=== PATIENT | female | born 1975 | race Hispanic/Latino ===

== ENCOUNTER 2017-02-06 17:52 | Emergency (ER) | payer SELFPAY ==
[2017-02-06] MEDS ORDERED: HYDROcodone/Acetaminophen 10/325 mg Tablet ONE (19:10)
== END 2017-02-06 19:15 | disposition home or self-care (01) ==
LOC: ERS 17:52
DX: K02.9 Dental caries, unspecified (principal); F32.9 Major depressive disorder, single episode, unspecified; F17.210 Nicotine dependence, cigarettes, uncomplicated
CPT/HCPCS: 99282

== ENCOUNTER 2017-05-04 05:57 | Emergency (ER) | payer SELFPAY ==
[2017-05-04 06:46] LABS: Bilirubin Negative (Negative); Blood, Urine Small (Negative); Clarity TURBID (Clear); Glucose, Urine (Dipstick) Negative (Negative); Leukocyte Large (Negative); Nitrite Positive (Negative); Protein, Urine (Dipstick) Trace mg/dL (Neg-Trace); Specific Gravity, Urine 1.022 (1.002-1.036)
[2017-05-04 06:48] LABS: Bacteria/HPF 4+ HPF (None Seen); Hyaline Casts/LPF 7-10 HYALINE CAST LPF (0-3 Hyaline); Pathc Cast-AUWi Flag 2.46 (0-2.49); RBC/HPF 21-50 HPF (0-3)
[2017-05-04 07:07] LABS: Pregnancy Test - Urine (BHCG) Negative (Negative); Pregu Control Background? CLEAR/WHITE (CLR/WHITE); Pregu Control Bar Appear? YES (CONTROL BAR); Specific Gravity 1.022 (1.002-1.036)
[2017-05-04] MEDS ORDERED: Lidocaine 1% PF 5 ML VIAL ONE (07:45)
[2017-05-04] MEDS ORDERED: cefTRIAXone\\ROCEPHIN 1 GM VIAL IM ONE (07:45)
[2017-05-05 22:13] LABS: Chlamydia by PCR Not Detected (NotDetected); GC by PCR Not Detected (NotDetected)
== END 2017-05-04 08:13 | disposition home or self-care (01) ==
LOC: ERS 05:57
DX: N30.00 Acute cystitis without hematuria (principal); F32.9 Major depressive disorder, single episode, unspecified; F17.210 Nicotine dependence, cigarettes, uncomplicated
CPT/HCPCS: 81003; 81015; 81025; 87491; 87591; 96372; J0696; J2001

== ENCOUNTER 2017-08-02 23:17 | Emergency (ER) | payer SELFPAY ==
[2017-08-03] MEDS ORDERED: Ketorolac Tromethamine 30 MG/ML VIAL ONE (01:04)
[2017-08-03] MEDS ORDERED: Acetaminophen 500 MG TAB ONE (01:04)
--- NOTE | 2017-08-03 07:44 | RAD ---
CHEST 2 VIEWS: HISTORY: Chest pain. COMPARISON: None. FINDINGS: Well defined small nodule in the right lung apex, likely a granuloma. Prominent right nipple shadow. No focal airspace consolidation, pneumothorax, or effusion. Mild spondylosis lower thoracic spine. IMPRESSION: No acute intrathoracic abnormality. No displaced rib fracture. POS: [facility]
== END 2017-08-03 01:58 | disposition home or self-care (01) ==
LOC: ERS 23:17
DX: S22.32XA Fracture of one rib, left side, initial encounter for closed fracture (principal); F32.9 Major depressive disorder, single episode, unspecified; F17.210 Nicotine dependence, cigarettes, uncomplicated; Y04.0XXA Assault by unarmed brawl or fight, initial encounter
CPT/HCPCS: 71046; 96372; J1885

== ENCOUNTER 2019-10-29 20:59 | Emergency (ER) | payer SELFPAY, OTHER ==
--- NOTE | 2019-10-30 08:29 | RAD ---
PORTABLE CHEST: HISTORY: Shortness of breath. FINDINGS: Heart size and mediastinum within normal limits. The lungs are clear of infiltrates. No significant bony findings. IMPRESSION: No active intrathoracic disease. POS: [facility]
[2019-10-30 14:50] LABS: SARS-CoV-2 MS2 Positive; SARS-CoV-2 N Gene Negative; SARS-CoV-2 S Gene Negative; SARS-CoV-2 orf1ab Negative
== END 2019-10-29 21:56 | disposition home or self-care (01) ==
LOC: ERS 20:59
DX: R50.9 Fever, unspecified (principal); M79.10 Myalgia, unspecified site; Z20.828 Contact with and (suspected) exposure to other viral communicable diseases; E03.9 Hypothyroidism, unspecified; F17.210 Nicotine dependence, cigarettes, uncomplicated; Z79.899 Other long term (current) drug therapy
CPT/HCPCS: 71045; 87635; U0003

== ENCOUNTER 2022-01-07 03:06 | Emergency (ER) | payer SELFPAY | END 2022-01-07 04:29 | disposition left against medical advice (07) | LOC: ERS 03:06 | DX: Z53.21 Procedure and treatment not carried out due to patient leaving prior to being seen by health care provider (principal) ==

== ENCOUNTER 2025-05-05 17:40 | Emergency (ER) | payer SELFPAY ==
[2025-05-05] MEDS ORDERED: Ketorolac Tromethamine 30 MG (1 mL) VIAL ONE (18:42)
[2025-05-05] MEDS ORDERED: cefTRIAXone (ROCEPHIN) 500 MG VIAL ONE (18:42)
[2025-05-05] MEDS ORDERED: Mag-Al 1200 mg/1200 mg/30 ML UDCUP ONE (18:43)
[2025-05-05] MEDS ORDERED: Lidocaine Viscous Sol 2% 15 ml UD Cup ONE (18:43)
[2025-05-05 19:11] LABS: #Basophils 0.04 10x3/uL (0.0-0.2); #Eosinophils 0.40 10x3/uL (0.0-0.7); #Monocytes 0.45 10x3/uL (0.11-0.59); #Neutrophils 4.98 10x3/uL (1.40-6.50); %Basophils 0.6 % (0.0-1.0); %Eosinophils 5.6 % (0.0-10.0); %Lymphocytes 17.7 % (21.0-51.0); %Monocytes 6.3 % (0.0-10.0); %Neutrophils 69.4 % (42.0-75.0); Hematocrit 38.0 % (36.0-47.0); Hemoglobin 12.5 g/dL (12.0-16.0); Mean Corpuscular Hemoglobin 29.5 pg (27.0-31.0); Mean Corpuscular Volume 89.6 fL (78.0-98.0); Platelet Count 271 10x3/uL (130-400); Red Blood Cell (RBC) Count 4.24 mill/uL (4.20-5.40); White Blood Cell (WBC) Count 7.17 10x3/uL (4.8-10.8)
[2025-05-05 19:20] LABS: BHCG - Serum Negative (NEGATIVE); Pregs Control Background? CLEAR/WHITE (CLR/WHITE); Pregs Control Bar Appear? YES (CONTROL BAR)
[2025-05-05 19:25] LABS: ALT (SGPT) 21 U/L (Less than 34); AST (SGOT) 29 U/L (11-34); Albumin 3.7 g/dL (3.1-4.5); Alkaline Phosphatase 84 U/L (40-110); Anion Gap 11 mmol/L (10-20); BUN (Urea Nitrogen) 15 mg/dL (7.0-18.7); Bilirubin, Total 0.2 mg/dL (0.3-1.2); Calc. Creatinine Clearance 0 mL/min (70-130); Calcium 9.6 mg/dL (7.8-10.44); Carbon Dioxide 27 mmol/L (22-29); Chloride 103 mmol/L (98-107); Globulin 4.6 g/dL (2.4-3.5); Glucose 95 mg/dL (70-105); Lipase 21 U/L (8-78); Potassium 3.4 mmol/L (3.5-5.1); Sodium 138 mmol/L (136-145)
[2025-05-05 19:38] LABS: Bacteria/HPF None Seen HPF (None Seen); CAUTI Indications for Culture Dysuria,urgency,freq; Glucose, Urine (Dipstick) Normal (Negative); Leukocyte 250 Leu/uL (Negative); Protein, Urine (Dipstick) Negative (Neg-Trace); RBC/HPF 0-3 HPF (0-3); Specific Gravity, Urine 1.020 (1.002-1.036)
[2025-05-05 19:46] LABS: Urine Culture Reflex Yes Yes
[2025-05-05 23:26] LABS: Chlam.trachomatis by PCR,Urine Not Detected (NotDetected); GC N.gonorrhoeae PCR,UrineVOID Not Detected (NotDetected)
== END 2025-05-05 20:08 | disposition home or self-care (01) ==
LOC: ERS 17:40
DX: R10.84 Generalized abdominal pain (principal); A54.9 Gonococcal infection, unspecified; E03.9 Hypothyroidism, unspecified; F32.A Depression, unspecified; F17.210 Nicotine dependence, cigarettes, uncomplicated
CPT/HCPCS: 80053; 81001; 83690; 84703; 85025; 87086; 87491; 87591; 96372; 96374; J0696; J1885